=== PATIENT | female | born 1970 | race Caucasian/White ===

== ENCOUNTER → 2018-09-19 | Outpatient (CLI) | payer OTHER | END | disposition home or self-care (01) | LOC: RAD 16:08 | DX: S20.229A Contusion of unspecified back wall of thorax, initial encounter (principal); M47.893 Other spondylosis, cervicothoracic region; M51.34 Other intervertebral disc degeneration, thoracic region; M50.323 Other cervical disc degeneration at C6-C7 level; M41.82 Other forms of scoliosis, cervical region; M41.83 Other forms of scoliosis, cervicothoracic region; V87.8XXA Person injured in other specified noncollision transport accidents involving motor vehicle (traffic), initial encounter; Y93.89 Activity, other specified; Y92.89 Other specified places as the place of occurrence of the external cause; Y99.8 Other external cause status ==